=== PATIENT | male | born 1990 | race Caucasian/White ===

== ENCOUNTER 2023-05-01 03:05 | Emergency (ER) | payer OTHER ==
[~2023-05-01] VITALS: Ht 180.3 cm; Wt 75.0 kg
[~2023-05-01 03:05] MED LIST: DAILY VITAMIN1 TAB PO; FISH OIL1000 MG PO
[2023-05-01 03:25] VITALS: BP 118/66; PULSE 81; TEMP 98.1
== END 2023-05-01 06:03 | disposition home or self-care (01) ==
LOC: COL.ER 03:05
DX: S83.91XA Sprain of unspecified site of right knee, initial encounter (principal); X58.XXXA Exposure to other specified factors, initial encounter; Y93.89 Activity, other specified; Y92.009 Unspecified place in unspecified non-institutional (private) residence as the place of occurrence of the external cause